=== PATIENT | female | born 1945 | race Caucasian/White ===

== ENCOUNTER 2017-03-26 08:00 | Outpatient (CLI) | payer MEDICARE | END 2017-03-26 23:59 | LOC: LAB.F 08:00 | PROVIDERS: ATTEND Physician Assistant Medical | DX: Z79.890 Hormone replacement therapy (principal) | CPT/HCPCS: 36415; 82670 ==

== ENCOUNTER 2017-05-07 10:24 | Outpatient (CLI) | payer MEDICARE ==
[2017-05-07 17:46] LABS: BASOPHILS % (AUTO) 0.5 %; EOSINOPHILS # (AUTO) 0.1 10^3/uL (0.0-0.7); EOSINOPHILS % (AUTO) 0.9 %; HGB - HEMOGLOBIN 14.6 g/dL (12.0-16.0); LYMPHOCYTES # (AUTO) 1.6 10^3/uL (1.5-3.5); LYMPHOCYTES % (AUTO) 26.5 %; MEAN CORPUSCULAR HEMOGLOBIN 32.4 pg (27.0-31.0); MEAN CORPUSCULAR HGB CONC 33.6 g/dL (32.0-36.0); MEAN CORPUSCULAR VOLUME 96.4 fL (81.0-99.0); MEAN PLATELET VOLUME 9.6 fL (7.9-10.8); MONOCYTES # (AUTO) 0.4 10^3/uL (0.0-1.0); MONOCYTES % (AUTO) 7.5 %; NEUTROPHILS # (AUTO) 3.8 10^3/uL (1.5-6.6); NEUTROPHILS % (AUTO) 64.6 %; PLT - PLATELET COUNT 250 10^3/uL (130-450); RED CELL DISTRIBUTION WIDTH 13.1 % (12.0-15.0); WHITE BLOOD COUNT 5.9 x10^3/uL (4.8-10.8)
[2017-05-07 18:38] LABS: ALBUMIN/GLOBULIN RATIO 1.2 (1.0-2.2); BILIRUBIN,TOTAL 0.7 mg/dL (0.2-1.0); CALCIUM 9.2 mg/dL (8.5-10.3); CREATININE 0.8 mg/dL (0.4-1.0); TOTAL PROTEIN 7.4 g/dL (6.7-8.2)
== END 2017-05-07 10:25 | disposition home or self-care (01) ==
LOC: LAB.F 10:24
PROVIDERS: ATTEND Physician Assistant Medical
DX: Z51.81 Encounter for therapeutic drug level monitoring (principal)
CPT/HCPCS: 36415; 80053; 85025

== ENCOUNTER 2018-04-17 09:48 | Outpatient (CLI) | payer MEDICARE ==
[2018-04-17 18:04] LABS: HB2 TOTAL 15.2 g/dL; HEMOGLOBIN A1C 0.59 g/dL; HEMOGLOBIN A1C % 5.7 % (4.6-6.2)
[2018-04-17 18:48] LABS: CHOL/HDL RATIO 3.3 (<4.4); CHOLESTEROL 236 mg/dL; HDL CHOLESTEROL 71 mg/dL; LDL CHOLESTEROL,CALCULATED 133 mg/dL; LDL/HDL RATIO 1.9 (<4.4); VLDL CHOLESTEROL 32 mg/dL
== END 2018-04-17 09:49 | disposition home or self-care (01) ==
LOC: LAB.F 09:48
PROVIDERS: ATTEND Registered Nurse
DX: I10 Essential (primary) hypertension (principal); Z79.890 Hormone replacement therapy; F32.9 Major depressive disorder, single episode, unspecified; Z79.899 Other long term (current) drug therapy
CPT/HCPCS: 36415; 80061; 83036; 83721; 84443

== ENCOUNTER 2018-04-17 12:37 | Outpatient (CLI) | payer MEDICARE ==
--- NOTE | 2018-04-20 11:51 | DEXA Report ---
Reason: HRT,OSTEOARTHRITIS,CARPOMET,JOINT,RIGHT THUMB Procedure Date: 04/17/2018 Accession Number: [id number] / [id number] Procedure: DEX - Dexa Spine and/or Hip CPT Code: FULL RESULT: EXAM: Dexa Spine and/or Hip DATE: 04/17/2018 1:07 PM CLINICAL HISTORY: HRT,OSTEOARTHRITIS,CARPOMET,JOINT,RIGHT THUMB hormone replacement therapy. Ovarian failure. TECHNIQUE: Dual energy x-ray absorptiometry (DXA) was performed on a [employer] System. Regions measured are the AP Spine, femoral neck, and if needed forearm. COMPARISON: 02/18/2014 In accordance with the International Society for Clinical Densitometry (ISCD) guidelines, data from previous exams may be reanalyzed using current recommendations and techniques. This is done to allow a more accurate basis for comparison with the current study. FINDINGS: The data for the lumbar spine is as follows: BMD (g/cm/cm) T-SCORE Z-SCORE REGION L1 1.321 1.6 2.7 L2 1.495 2.5 3.6 L3 1.556 3.0 4.1 L4 1.429 1.9 3.0 TOTAL 1.450 2.2 3.4 NOTE: All evaluable vertebrae are used for classification The data for the hip is as follows: BMD (g/cm/cm) T-SCORE Z-SCORE REGION Neck 0.955 -0.6 0.8 TOTAL 1.023 0.1 1.3 NOTE: The femoral neck or total proximal femur, whichever is lowest, is used for classification. IMPRESSION: THE WHO CLASSIFICATION BASED ON THE INTERNATIONAL REFERENCE STANDARD IS NORMAL. THE FRACTURE RISK IS NOT INCREASED. RECOMMENDATION: Patients with diagnosis of osteoporosis or osteopenia should have regular bone mineral density assessment. For those eligible for Medicare, routine testing is allowed once every 2 years. Testing frequency can be increased for patients who have rapidly progressing disease or for those who are receiving medical therapy to restore bone mass. COMMENT: World Health Organization (WHO) definitions for osteoporosis and osteopenia: NORMAL BMD: T-score at -1.0 or higher, fracture risk is low OSTEOPENIA BMD: T-score between -1.0 and -2.5, fracture risk is increased. OSTEOPOROSIS BMD: T-score at -2.5 or lower, fracture risk is high. National Osteoporosis Foundation recommends: 1. Obtain adequate dietary calcium (at least 1200 mg per day) and vitamin D (400-800 international units per day). 2. Participate, as appropriate, in regular weightbearing and muscle-strengthening exercise. 3. Avoid tobacco use and reduce alcohol and caffeine intake. 4. For more detailed information see the website at www.NOF.org.
== END 2018-04-17 12:38 | disposition home or self-care (01) ==
LOC: DI 12:37
PROVIDERS: ATTEND Registered Nurse
DX: M18.11 Unilateral primary osteoarthritis of first carpometacarpal joint, right hand (principal); Z79.890 Hormone replacement therapy; I10 Essential (primary) hypertension; F32.9 Major depressive disorder, single episode, unspecified; Z79.899 Other long term (current) drug therapy
CPT/HCPCS: 36415; 77080; 80061; 83036; 83721; 84443

== ENCOUNTER 2019-06-04 09:09 | Outpatient (CLI) | payer MEDICARE ==
[2019-06-04 17:26] LABS: BASOPHILS % (AUTO) 0.5 %; EOSINOPHILS # (AUTO) 0.1 10^3/uL (0.0-0.7); EOSINOPHILS % (AUTO) 1.2 %; HGB - HEMOGLOBIN 14.1 g/dL (12.0-16.0); LYMPHOCYTES # (AUTO) 1.2 10^3/uL (1.5-3.5); LYMPHOCYTES % (AUTO) 20.5 %; MEAN CORPUSCULAR HEMOGLOBIN 30.9 pg (27.0-31.0); MEAN CORPUSCULAR HGB CONC 33.2 g/dL (32.0-36.0); MEAN PLATELET VOLUME 11.1 fL (7.9-10.8); MONOCYTES # (AUTO) 0.5 10^3/uL (0.0-1.0); MONOCYTES % (AUTO) 8.3 %; NEUTROPHILS % (AUTO) 69.3 %; PLT - PLATELET COUNT 258 10^3/uL (130-450); RED BLOOD COUNT 4.57 10^6/uL (4.20-5.40); RED CELL DISTRIBUTION WIDTH 12.1 % (12.0-15.0); WHITE BLOOD COUNT 5.8 x10^3/uL (4.8-10.8)
[2019-06-04 17:47] LABS: ALBUMIN 4.1 g/dL (3.2-5.5); ALBUMIN/GLOBULIN RATIO 1.3 (1.0-2.2); ALKALINE PHOSPHATASE 53 IU/L (42-121); ALT ALANINE AMINOTRANSFERASE 18 IU/L (10-60); AST ASPARTATE AMINOTRANSFERASE 21 IU/L (10-42); BILIRUBIN,TOTAL 0.8 mg/dL (0.2-1.0); BUN - BLOOD UREA NITROGEN 18 mg/dL (6-20); CALCIUM 9.1 mg/dL (8.5-10.3); CARBON DIOXIDE - CO2 26 mmol/L (21-32); CHLORIDE 101 mmol/L (101-111); CHOL/HDL RATIO 3.5 (<4.4); CHOLESTEROL 252 mg/dL; CREATININE 0.7 mg/dL (0.4-1.0); GFR - MDRD 82 (>89); GLUCOSE 112 mg/dL (70-100); HDL CHOLESTEROL 73 mg/dL; LDL CHOLESTEROL,CALCULATED 142 mg/dL; LDL/HDL RATIO 1.9 (<4.4); SODIUM 137 mmol/L (135-145); TOTAL PROTEIN 7.2 g/dL (6.7-8.2); VLDL CHOLESTEROL 37 mg/dL
== END 2019-06-04 09:10 | disposition home or self-care (01) ==
LOC: LAB.S 09:09
PROVIDERS: ATTEND Registered Nurse
DX: R00.2 Palpitations (principal); I10 Essential (primary) hypertension; F32.9 Major depressive disorder, single episode, unspecified; Z79.890 Hormone replacement therapy
CPT/HCPCS: 36415; 80053; 80061; 83721; 84443; 85025

== ENCOUNTER 2019-09-23 06:25 | Day surgery (SDC) | payer MEDICARE ==
[~2019-09-23 06:25] MED LIST: CYCLOPENTOLATE 1% OPHTH DROPS 2 ML ONE; KETOROLAC 0.45% OPHTH DROPS ONE; PHENYLEPHRINE 2.5% OPHTH 2 ML DROPS ONE; PROPARACAINE 0.5% OPHTH DROPS 15 ML ONE
[2019-09-23] MEDS ORDERED: PROPARACAINE 0.5% OPHTH DROPS 15 ML LEFTEYE ONE (06:40)
[2019-09-23] MEDS ORDERED: KETOROLAC 0.45% OPHTH DROPS LEFTEYE ONE (06:40)
[2019-09-23] MEDS ORDERED: PHENYLEPHRINE 2.5% OPHTH 2 ML DROPS LEFTEYE ONE (06:40)
[2019-09-23] MEDS ORDERED: CYCLOPENTOLATE 1% OPHTH DROPS 2 ML LEFTEYE ONE (06:40)
[2019-09-23] MEDS ORDERED: LACTATED RINGERS 500 ML IV ONE (06:45)
[2019-09-23] MEDS ORDERED: timoloL maleate 0.5% OPHTH DROPS (10ML) ONE (06:58)
[2019-09-23] MEDS ORDERED: BRIMONIDINE 0.2% OPHTH DROPS 5 ML ONE (06:58)
[2019-09-23] MEDS ORDERED: EPINEPHrine 1 MG/ML AMP ONE (06:58)
[2019-09-23] MEDS ORDERED: TRIAMCIN/MOXIFLOX OPHTHALMIC 0.6 ML VIAL IO ONE ×2 (06:58→08:49)
[2019-09-23] MEDS ORDERED: BSS/LIDOCAINE/EPINEPHRINE 1 ML SYRINGE ONE (06:59)
[2019-09-23] MEDS ORDERED: VANCOMYCIN OPHTHALMI 8MG/0.8ML 8 MG/0.8 ML SYRINGE IO ONE ×2 (06:59→08:50)
--- NOTE | 2019-09-23 07:01 | ANESTHESIA ---
Pre-Anesthesia VS, & Labs - Diagnosis nuclear sclerotic cataract left eye - Procedure left cataract extraction with intraocular lens implant Vital Signs: Temp Pulse Resp BP Pulse Ox 36.1 C L 75 18 160/78 H 98 09/23/19 06:30 09/23/19 06:30 09/23/19 06:30 09/23/19 06:30 09/23/19 06:30 Height 5 ft 3 in Weight (kg) 87.2 kg - NPO >8 hours - Is Patient ?: No Home Medications and Allergies Home Medications: Ambulatory Orders Cetirizine [ZyrTEC] 1 DAILY 09/23/19 Cholecalciferol [Vitamin D3] 1 DAILY 09/23/19 Duloxetine HCl 1 DAILY 09/23/19 Vit C/Ascorb Sod/Multivit-Min [Emergen-C 500 mg Chewable Tab] 1 DAILY 09/23/19 atenoloL [Atenolol] 1 DAILY 09/23/19 Cetirizine [ZyrTEC] 1 DAILY 09/23/19 Cholecalciferol [Vitamin D3] 1 DAILY 09/23/19 Duloxetine HCl 1 DAILY 09/23/19 Vit C/Ascorb Sod/Multivit-Min [Emergen-C 500 mg Chewable Tab] 1 DAILY 09/23/19 atenoloL [Atenolol] 1 DAILY 09/23/19 Allergies/Adverse Reactions: Allergies Allergy/AdvReac Type Severity Reaction Status Date / Time cephalexin [From Keflex] Allergy Rash Verified 09/23/19 06:49 Sulfa (Sulfonamide Allergy Respiratory Verified 09/23/19 06:49 Antibiotics) Anes History & Medical History - Anesthetic History Anesthesia Complications: reports: No previous complications - Medical History Cardiovascular: reports: Hypertension Pulmonary: reports: Other Gastrointestinal: reports: GERD Urinary: reports: Other Musculoskeletal: reports: None Endocrine/Autoimmune: reports: None Skin: reports: None - Surgical History General: Colonoscopy Eyes Ears Nose Throat (EENT): Cataracts, Other Gynecologic: 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, Hysterectomy Exam General: Alert, Oriented x3 Dental: WNL Mouth Opening: Greater than 4 Fingerbreadths Neck Mobility: Normal Mallampati classification: II Thyromental Distance: greater than 6 cm Respiratory: Lungs clear Cardiovascular: Regular rate Plan Anesthesia Type: MAC Consent for Procedure(s) Verified and Reviewed: Yes Code Status: Attempt Resuscitation ASA classification: 2-Mild systemic disease Is this case an emergency?: No
[2019-09-23] MEDS ORDERED: MIDAZOLAM 2 MG/2 ML VIAL IVP ONE (07:23)
[2019-09-23 07:54] VITALS: BP 146/64
[2019-09-23] MEDS ORDERED: BRIMONIDINE 0.2% OPHTH DROPS 5 ML OPTH ONE (08:48)
[2019-09-23] MEDS ORDERED: EPINEPHrine 1 MG/ML AMP IVP ONE (08:48)
[2019-09-23] MEDS ORDERED: BSS/LIDOCAINE/EPINEPHRINE 1 ML SYRINGE IO ONE (08:48)
[2019-09-23] MEDS ORDERED: CHONDR SULF/HYALURONATE SYRINGE IO ONE (08:48)
[2019-09-23] MEDS ORDERED: timoloL maleate 0.5% OPHTH DROPS (10ML) LEFTEYE ONE (08:49)
--- NOTE | 2019-09-23 09:18 | PROCEDURE REPORT ---
DATE OF SERVICE: 09/23/2019 Physician: Deepak Foote MD PREOPERATIVE DIAGNOSIS: Visually significant cataract, left eye. Cataract surgery was performed on the right eye on 02/13/2012. POSTOPERATIVE DIAGNOSIS: Visually significant cataract, left eye. Cataract surgery was performed on the right eye on 02/13/2012. PROCEDURE: Phacoemulsification with posterior chamber intraocular lens implant, left eye. SURGEON: Deepak Foote MD ANESTHESIA: Monitored anesthesia care. COMPLICATIONS: None. OPERATIVE INDICATIONS: This is a 74-year-old woman with progressive vision loss in the left eye due to 2+ nuclear sclerotic, 1+ cortical and vacuolar5 cataract. Best corrected visual acuity was 20/25 with glare to 20/125 in the left eye. Indications for surgery were difficulty driving in low light or at night, difficulty with glare or bright lights in any situation. She was consented at length concerning risks and benefits of cataract surgery, after which she expressed a desire to proceed with surgery. OPERATIVE PROCEDURE: The patient was taken to OR #3 and placed under monitored anesthesia care and surgical timeout was conducted confirming correct patient, correct procedure, and correct surgical site. She was given topical anesthesia, and prepped and draped in the usual sterile fashion. The eye was entered at the 6 and 3 o'clock positions. Intracameral Shugarcaine was injected into the anterior chamber, followed by Viscoat. A continuous-tear curvilinear capsulorrhexis was performed. The nucleus was hydrodissected and phacoemulsified. Cortex was evacuated using automated infusion and aspiration. Provisc was injected in the capsular bag, and an 18.5 diopter intraocular lens inserted in the bag. Infusion and aspiration was used to evacuate the viscoelastic materials. The eye was inflated to physiologic pressure using balanced salt solution and found to be watertight. Approximately 0.25 mL of a mixture of triamcinolone and moxifloxacin was injected trans sclerally into the vitreous in the inferotemporal quadrant. An additional 0.55 mL of a mixture of triamcinolone, moxifloxacin and vancomycin was injected subconjunctivally in the superior quadrant for infection and inflammation prophylaxis. Wound integrity was checked with Weck-Makenzie sponges. The patient was taken from the operating room in good condition and given postoperative instructions. TD: 09/23/2019 07:54 [facility]
== END 2019-09-23 06:26 | disposition home or self-care (01) ==
LOC: SDS 06:25
PROVIDERS: ATTEND Ophthalmology
PROC: 08RK3JZ Replacement of Left Lens with Synthetic Substitute, Percutaneous Approach (ICD-10-PCS; principal; 2019-09-23 07:30)
DX: H25.12 Age-related nuclear cataract, left eye (principal); I10 Essential (primary) hypertension; F41.9 Anxiety disorder, unspecified; Z87.891 Personal history of nicotine dependence
CPT/HCPCS: 66984; A9270; J3490; V2632

== ENCOUNTER 2019-12-15 12:23 | Outpatient (CLI) | payer MEDICARE ==
--- NOTE | 2019-12-16 06:36 | Mammography Report ---
BILATERAL DIGITAL SCREENING MAMMOGRAM 3D/2D: 12/15/2019 CLINICAL: Routine screening. Comparison is made to exams dated: 02/27/2016 mammogram, 06/14/2014 mammogram, 05/30/2014 mammogram, 04/07/2012 mammogram, 12/26/2011 mammogram, and 10/26/2010 mammogram - [facility]. The tissue of both breasts is predominantly fatty. There is a 0.6 cm irregular asymmetry with an indistinct margin in the right breast anterior depth ce ntral to the nipple seen on the craniocaudal view only 4 cm from the nipple. No other significant masses, calcifications, or other findings are seen in either breast. IMPRESSION: INCOMPLETE: NEEDS ADDITIONAL IMAGING EVALUATION The 0.6 cm irregular asymmetry in the right breast is indeterminate. A diagnostic mammogram and ultr asound is recommended. This exam was interpreted at Station ID: [id number]. NOTE: For mammograms, a report in lay terms will be sent to the patient. Approximately 15% of breast malignancies will not be visualized mammographically. In the management of a palpable breast mass, a negative mammogram must not discourage biopsy of a clinically suspicious lesion. Electronically Signed By: Dexter Mendoza M.D., jr/capo:12/15/2019 13:34:08 ACR BI-RADS Category 0: Incomplete 3340F PARENCHYMAL PATTERN: (F) - The breast(s) demonstrate(s) diffuse fatty replacement. BI-RADS CATEGORY: (0) - 0 Mammo and [place] [id number] Immediate follow-up LATERALITY: (B)
== END 2019-12-15 12:24 | disposition home or self-care (01) ==
LOC: DI 12:23
PROVIDERS: ATTEND Registered Nurse
DX: Z12.31 Encounter for screening mammogram for malignant neoplasm of breast (principal); R92.8 Other abnormal and inconclusive findings on diagnostic imaging of breast
CPT/HCPCS: 77063; 77067

== ENCOUNTER 2020-01-14 11:50 | Outpatient (CLI) | payer MEDICARE | END 2020-01-14 23:59 | disposition home or self-care (01) | LOC: COV 11:50 | PROVIDERS: ATTEND Family Medicine | DX: R05 Cough (principal); Z20.828 Contact with and (suspected) exposure to other viral communicable diseases; M79.10 Myalgia, unspecified site; R53.83 Other fatigue ==

== ENCOUNTER 2020-03-15 12:57 | Outpatient (CLI) | payer MEDICARE | END 2020-03-15 23:59 | disposition home or self-care (01) | LOC: LAB.R 12:57 | PROVIDERS: ATTEND Physician Assistant | DX: R30.0 Dysuria (principal); N30.00 Acute cystitis without hematuria | CPT/HCPCS: 87086 ==

== ENCOUNTER 2020-03-27 09:13 | Outpatient (CLI) | payer MEDICARE ==
--- NOTE | 2020-03-27 14:45 | Mammography Report ---
UNILATERAL RIGHT DIGITAL DIAGNOSTIC MAMMOGRAM 3D/2D: 03/27/2020 CLINICAL: Patient returns today to evaluate a focal asymmetry in the right breast. Comparison is made to exams dated: 12/15/2019 mammogram, 02/27/2016 mammogram, 06/14/2014 mammogram, an d 05/30/2014 mammogram - [facility]. The tissue of right breast is predominantly fa tty. There also is a new 0.6 cm irregular asymmetry with an indistinct margin in the right breast anterior depth central to the nipple seen on the craniocaudal view only 4 cm from the nipple. This is seen i n additional views. This was not seen on the prior scrreening mammogram. No other significant masses or calcifications are seen in the breast. IMPRESSION: INCOMPLETE: NEEDS ADDITIONAL IMAGING EVALUATION The new 0.6 cm irregular asymmetry in the right breast anterior depth central to the nipple seen on t he craniocaudal view only is indeterminate. An ultrasound is recommended. US will be performed and dictated separately. This exam was interpreted at Station ID: [id number]. NOTE: For mammograms, a report in lay terms will be sent to the patient. Approximately 15% of breast malignancies will not be visualized mammographically. In the management of a palpable breast mass, a negative mammogram must not discourage biopsy of a clinically suspicious lesion. Electronically Signed By: Franki Robles acr/:03/27/2020 11:03:09 ACR BI-RADS Category 0: Incomplete 3340F PARENCHYMAL PATTERN: (F) - The breast(s) demonstrate(s) diffuse fatty replacement. BI-RADS CATEGORY: (0) - 0 Ultrasound [id number] Immediate follow-up LATERALITY: (B)
--- NOTE | 2020-03-27 14:46 | Ultrasound Report ---
LIMITED ULTRASOUND OF RIGHT BREAST: 03/27/2020 CLINICAL: Patient returns today to evaluate a focal asymmetry in the right breast. No abnormality which corresponds with the mammographic abnormality is seen. IMPRESSION: PROBABLY BENIGN There are no abnormalities seen in the right breast to correspond with the mammography findings at 7, 8, 9, and 10 o'clock which likely represent normal fibroglandular tissue. A follow-up mammogram and an ultrasound in 6 months is recommended to demonstrate stability. This exam was interpreted at Station ID: [id number]. Electronically Signed By: Franki Robles acr/:03/27/2020 11:12:00 Ultrasound BI-RADS: 3 Probably benign BI-RADS CATEGORY: (3) - 3 Mammo and [place] [id number] 6 month follow-up LATERALITY: (B)
== END 2020-03-27 09:14 | disposition home or self-care (01) ==
LOC: DI 09:13
PROVIDERS: ATTEND Registered Nurse
DX: N64.59 Other signs and symptoms in breast (principal)

== ENCOUNTER 2020-04-14 14:20 | Emergency (ER) | payer MEDICARE ==
--- NOTE | 2020-04-14 14:40 | ED Physician Documentation ---
PD HPI HEADACHE - Stated complaint Stated Complaint: NAUSEA, HEADACHE - Chief complaint Chief Complaint: Neuro - History obtained from History obtained from: Patient - History of Present Illness Timing - onset: How many days ago (2) Timing - onset during: Sleep Timing - duration: Days (2) Timing - details: Abrupt onset Pain level max: 8 Pain level now: 6 Location: Front, Left Quality: Throbbing, Aching, Tightness. No: Thunderclap, Like head is exploding Associated symptoms: Other (states feels dizzy and off balance). No: Fever, Stiff neck, Nausea, Vomiting, Weakness, Numbness, Syncope, Seizure, Eye pain, Vision changes Improved by: Rest Worsened by: Light, Noise, Moving Contributing factors: No: Anticoagulated, Possible carbon monoxide, Hypertension, Recent illness, Trauma Recently seen: Not recently seen - Additional information Additional information: took aspirin at home without relief. Seen at the walk in clinic today and sent here for further evaluation. Patient also states that she feels dizzy when she walks, like the room is spinning and she is off balance. Worse with turning her head. Better with lying still Review of Systems Ten Systems: 10 systems reviewed and negative Constitutional: denies: Fever, Chills Eyes: denies: Decreased vision, Photophobia Nose: denies: Rhinorrhea / runny nose, Congestion Throat: denies: Sore throat Respiratory: denies: Cough GI: denies: Abdominal Pain, Nausea, Vomiting, Diarrhea Skin: denies: Rash Musculoskeletal: denies: Neck pain, Back pain Neurologic: denies: Focal weakness, Numbness, Syncope, Seizure, Confused PD PAST MEDICAL HISTORY - Past Medical History Cardiovascular: Hypertension Respiratory: Other Endocrine/Autoimmune: None GI: GERD : Other HEENT: Chronic vision loss, Chronic sinusitis, Chronic hearing loss Psych: Depression, Anxiety, Claustrophobia Musculoskeletal: None Derm: None - Past Surgical History General: 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: 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, Hysterectomy HEENT: Cataracts, Other - Present Medications Home Medications: Ambulatory Orders Medication Instructions Recorded Confirmed Cholecalciferol [Vitamin D3] 5,000 unit PO DAILY 09/23/19 04/14/20 Duloxetine HCl 20 mg PO DAILY 09/23/19 04/14/20 Vit C/Ascorb Sod/Multivit-Min 500 mg PO DAILY 09/23/19 04/14/20 [Emergen-C 500 mg Chewable Tab] atenoloL [Atenolol] 50 mg PO DAILY 09/23/19 04/14/20 Amox/Clav 875/125 [Augmentin] 1 tab PO Q12H #20 tablet 04/14/20 Omeprazole 20 mg PO DAILY 04/14/20 04/14/20 - Allergies Allergies/Adverse Reactions: Allergies Allergy/AdvReac Type Severity Reaction Status Date / Time cephalexin [From Keflex] Allergy Rash Verified 04/14/20 15:08 nitrofurantoin Allergy Unknown Verified 04/14/20 15:08 Sulfa (Sulfonamide Allergy Respiratory Verified 04/14/20 15:08 Antibiotics) PD ED PE NORMAL - Vitals Vital signs reviewed: Yes - General General: Alert and oriented X 3, No acute distress - HEENT HEENT: Atraumatic, PERRL, EOMI, Moist mucous membranes, Pharynx benign, Other (R TM is erythematous, dull, bulging with loss of landmarks. Purulent fluid present., L TM is normal. no sinus tenderness.) - Neck Neck: Supple, no meningeal sign - Cardiac Cardiac: RRR - Respiratory Respiratory: No respiratory distress, Clear bilaterally - Abdomen Abdomen: Soft, Non tender, Non distended - Derm Derm: Warm and dry - Extremities Extremities: No edema, No calf tenderness / cord - Neuro Neuro: Alert and oriented X 3, computer scientist 2-12 intact, No motor deficit, No sensory deficit, Normal speech, Other (normal cerebellar testing. + hallpike to the R. Horizontal nystagmus to the R. ) Eye Opening: Spontaneous Motor: Obeys Commands Verbal: Oriented GCS Score: 15 - Psych Psych: Normal mood, Normal affect Results - Vitals Vitals: Vital Signs - 24 hr 04/14/20 04/14/20 04/14/20 14:21 14:40 15:06 Temperature 36.4 C L Heart Rate 64 61 60 Respiratory 15 10 L 10 L Rate Blood Pressure 197/91 H 170/84 H 175/85 H O2 Saturation 99 99 100 04/14/20 04/14/20 04/14/20 15:30 16:47 17:00 Temperature Heart Rate 67 60 64 Respiratory 13 18 18 Rate Blood Pressure 189/99 H 174/79 H 170/73 H O2 Saturation 99 100 99 Oxygen O2 Source Room air - Labs Labs: Laboratory Tests 04/14/20 04/14/20 14:43 14:43 WBC 7.4 RBC 4.60 Hgb 14.3 Hct 42.9 MCV 93.3 MCH 31.1 H MCHC 33.3 RDW 12.3 Plt Count 257 MPV 9.6 Neut # (Auto) 5.8 Lymph # (Auto) 1.2 L [place] # (Auto) 0.4 Eos # (Auto) 0.0 Baso # (Auto) 0.0 Absolute Nucleated RBC 0.00 Nucleated RBC % 0.0 Sodium 134 L Potassium 4.0 Chloride 100 L Carbon Dioxide 24 Anion Gap 10.0 BUN 14 Creatinine 0.8 Estimated GFR (MDRD) 70 L Glucose 119 H Calcium 8.9 Total Bilirubin 0.7 AST 27 ALT 30 Alkaline Phosphatase 67 Total Protein 7.5 Albumin 4.2 Globulin 3.3 Albumin/Globulin Ratio 1.3 Lipase 19 L - Rads (name of study) head ct Radiology: Prelim report reviewed, EMP read contemporaneously, See rad report (No acute abnormality) MRI brain Radiology: Prelim report reviewed, EMP read contemporaneously, See rad report (No acute abnormality) MRV brain Radiology: Prelim report reviewed, EMP read contemporaneously, See rad report (No acute abnormality) PD MEDICAL DECISION MAKING - ED course Complexity details: reviewed results, re-evaluated patient, considered differential, d/w patient ED course: 74-year-old female with a headache for the past 2 days. Does have a left otitis media. We will place her on antibiotics for this. No acute findings on head CT. No evidence of sinus venous thrombosis. No evidence of stroke. Headache improved in the emergency department. No fevers. Ambulating without difficulty in the emergency department. NIH stroke scale of 0. We will place her on antibiotics for home and have her follow-up with her doctor. Patient counseled regarding signs and symptoms for which I believe and urgent re-evaluation would be necessary. Patient with good understanding of and agreement to plan and is comfortable going home at this time This document was made in part using voice recognition software. While efforts are made to proofread this document, sound alike and grammatical errors may occur. Departure - Departure Disposition: 01 Home, Self Care Clinical Impression: Headache Qualifiers: Headache type: unspecified Headache chronicity pattern: unspecified pattern Intractability: not intractable Qualified Code(s): R51.9 - Headache, unspecified Otitis media Qualifiers: Otitis media type: suppurative Chronicity: acute Laterality: left Recurrence: non-recurrent Spontaneous tympanic membrane rupture: without spontaneous rupture Qualified Code(s): H66.002 - Acute suppurative otitis media without spontaneous rupture of ear drum, left ear Condition: Good Instructions: ED Cephalgia Unspecified, ED Otitis Media Acute Adult Follow-Up: Christi Pineda ARNP [Primary Care Provider] - Within 1 week Prescriptions: Amox/Clav 875/125 [Augmentin] 1 tab PO Q12H #20 tablet Comments: Return if you worsen. Your workup is normal tonight. Take all antibiotics until gone. Follow up with your doctor for further care. Your [facility] was [facility] to [facility] Discharge Date/Time: 04/14/20 17:36
[2020-04-14 14:49] LABS: BASOPHILS % (AUTO) 0.4 %; EOSINOPHILS % (AUTO) 0.3 %; HGB - HEMOGLOBIN 14.3 g/dL (12.0-16.0); LYMPHOCYTES # (AUTO) 1.2 10^3/uL (1.5-3.5); LYMPHOCYTES % (AUTO) 15.9 %; MEAN CORPUSCULAR HEMOGLOBIN 31.1 pg (27.0-31.0); MEAN CORPUSCULAR HGB CONC 33.3 g/dL (32.0-36.0); MEAN CORPUSCULAR VOLUME 93.3 fL (81.0-99.0); MEAN PLATELET VOLUME 9.6 fL (7.9-10.8); MONOCYTES # (AUTO) 0.4 10^3/uL (0.0-1.0); MONOCYTES % (AUTO) 4.8 %; NEUTROPHILS # (AUTO) 5.8 10^3/uL (1.5-6.6); NEUTROPHILS % (AUTO) 78.3 %; PLT - PLATELET COUNT 257 10^3/uL (130-450); RED CELL DISTRIBUTION WIDTH 12.3 % (12.0-15.0); WHITE BLOOD COUNT 7.4 x10^3/uL (4.8-10.8)
[2020-04-14 15:03] LABS: ALBUMIN 4.2 g/dL (3.2-5.5); ALBUMIN/GLOBULIN RATIO 1.3 (1.0-2.2); BILIRUBIN,TOTAL 0.7 mg/dL (0.2-1.0); CALCIUM 8.9 mg/dL (8.5-10.3); CREATININE 0.8 mg/dL (0.4-1.0); TOTAL PROTEIN 7.5 g/dL (6.7-8.2)
--- NOTE | 2020-04-14 15:16 | CT Report ---
PROCEDURE: HEAD WO INDICATIONS: headache TECHNIQUE: Noncontrast 4.5 mm thick angled axial sections acquired from the foramen magnum to the vertex. For r adiation dose reduction, the following was used: automated exposure control, adjustment of mA and/or kV according to patient size. COMPARISON: None. FINDINGS: Image quality: Excellent. CSF spaces: Basal cisterns are patent. No extra-axial fluid collections. The ventricles are symmet idalia in size and shape. Brain: No intracranial bleeds or masses. There is cerebral volume loss for age, with resultant vent ricular and sulcal prominence. There are periventricular and deep white matter chronic small vessel ischemic changes. There is intracranial internal carotid artery atherosclerosis. Skull and face: Calvarium and visualized facial bones appear intact, without suspicious lesions. Sinuses: Visualized sinuses and mastoids are clear. IMPRESSION: 1. No CT evidence of acute intracranial pathology. 2. Age-appropriate atrophy and mild white matter small vessel chronic ischemic changes. Reviewed by: Joon Blas MD on 04/14/2020 3:15 PM PST Approved by: Joon Blas MD on 04/14/2020 3:15 PM PST Station ID: [id number]
[2020-04-14] MEDS ORDERED: LORazepam 2 MG/ML VIAL IVP STA (15:45)
--- NOTE | 2020-04-14 16:50 | MRI Report ---
PROCEDURE: MRV-Brain Venous W/O INDICATIONS: headache, gait difficulties TECHNIQUE: Sagittal T1 spin echo through the brain. Coronal 2D [id number] MR venogram, with 3-dimensional m xozsfo-jlrtnnfaj-ttaipgrvxw (MIP) reformats of the intracranial veins then performed. COMPARISON: Correlation is made with the accompanying head CT and brain MRI, 04/14/2020. FINDINGS: Image quality: Excellent. Veins: Sagittal, straight, and sigmoid sinuses all appear patent. The left transverse sinus is dimi nutive. 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 Brain: Limited images through the brain parenchyma show no intracranial bleeds or mass effects. IMPRESSION: No intracranial venous thrombosis can be seen. Reviewed by: Dameon Mercado MD on 04/14/2020 3:49 PM [facility] Approved by: Dameon Mercado MD on 04/14/2020 3:49 PM [facility] Station ID: [id number]
--- NOTE | 2020-04-14 16:51 | MRI Report ---
PROCEDURE: Brain W/O INDICATIONS: headache, gait difficulties TECHNIQUE: Noncontrast axial T1 spin echo, axial T2 fast spin echo, sagittal and axial FLAIR, coronal T2 fast sp in echo, axial gradient echo, axial diffusion and ADC through the brain. COMPARISON: Correlation is made with the CT performed earlier in the day as well as the accompanying MR venogram. FINDINGS: Image quality: Excellent. CSF Spaces: Basal cisterns are patent. No extra-axial fluid collections. Ventricles are normal in size and shape. Brain: No intracranial masses or hemorrhage. Cortés/white matter interface is normal. Brainstem appe ars normal. Diffusion-weighted images demonstrate no acute ischemic insult. Brain parenchymal volume loss is seen. Chronic small vessel ischemic changes are seen. No chronic ischemic insults. Normal i ntravascular flow voids are present. Skull and face: Calvarium has normal marrow signal. Orbits appear normal. Sinuses: Sinuses and mastoids are clear. IMPRESSION: No imaging explanation is found for the patient's presenting symptoms. Unremarkable intracranial study for age, with age-appropriate brain parenchymal volume loss and chron ic small vessel ischemic change. No findings of acute or subacute infarction are seen. Reviewed by: Dameon Mercado MD on 04/14/2020 3:50 PM [place] Approved by: Dameon Mercado MD on 04/14/2020 3:[address] [facility] Station ID: [id number]
[2020-04-14] MEDS ORDERED: AMOX/CLAV 875 MG/125 MG TABLET PO STA (16:53)
[2020-04-14] MEDS ORDERED: BUTALB/ACETAM/CAFF 50/325/40MG TABLET PO STA (16:53)
[2020-04-14 17:45] VITALS: BP 170/73
--- OUTSIDE RECORDS SUMMARY | 2020-04-19 01:43 | EXTERNAL MEDICAL SUMMARY RPT | Continuity of Care Document ---
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 Katus Unavailable Unavailable Problems date description facility 2020-02-08 00:00:00 Former smoker [facility] 2020-03-15 00:00 ACUTE CYSTITIS WITHOUT [facility] HEMATURIA 2020-03-15 00:[facility] [place] [facility] 2020-03-15 00:00:00 Acute cystitis without [facility] hematuria [facility] 2020-03-15 00:00:00 [facility] 2020-03-15 00[facility]00[facility]00 [facility] 2020-03-15 00:00:00 [facility] 2020-03-15 00:00:00 [facility] 2020-03-15 00:00:00 Details of drug misuse [facility] 2020-03-15 00:00:00 [facility] 2020-03-15 00:00:00 Tobacco smoking status [facility] 2020-03-15 00:00:00 [facility] 2020-03-15 12:57 ACUTE CYSTITIS WITHOUT [facility] HEMATURIA 2020-03-15 12:57 DYSURIA [facility] 2020-03-23 00:00:00 Vaginitis and vulvovaginitis, [facility] unspecified [facility] 2020-03-23 00:00:00 Subacute and chronic vaginitis [facility] 2020-03-23 00:00:00 Vulvovaginitis [facility] 2020-03-23 00:00:00 Former smoker [facility] 2020-04-14 00:00:00 Nausea alone [facility] 2020-04-14 00:00:00 Nausea [facility] 2020-04-14 00:00:00 Dizziness and giddiness [facility] 2020-04-14 00:00:00 Alcohol intake [facility] 2020-04-14 00:00:00 Health-related behavior [facility] 2020-04-14 00:00:00 Tobacco use and exposure [facility] 2020-04-14 00:00:00 Exercise [facility] 2020-04-14 00:00:00 Details of drug misuse behavior [facility] 2020-04-14 00:00:00 Vertigo [facility] 2020-04-14 00:00:00 Alcohol use [facility] 2020-04-14 00:00:00 Tobacco smoking status [facility] 2020-04-14 00:00:00 Former smoker [facility] Allergies date description facility AMOXICILLIN-POT CLAVULANATE [facility] SEASONAL [facility] NSAIDS (NON-STEROIDAL ANTI-INFLAMMATORY DRUG) [facility] SIMVASTATIN [facility] BRAZIL NUT [facility] NO ALLERGY INFORMATION AVAILABLE [facility] NO KNOWN ALLERGIES [facility] Sulfa (Sulfonamide Antibiotics) [facility] cephalexin [facility] ASPIRIN [facility] BETA ADRENERGIC BLOCKERS [facility] PENICILLINS [facility] PENICILLINS [facility] FLUOROURACIL [facility] Sulfa (Sulfonamide Antibiotics) [facility] cephalexin [facility] Medications date description facility 2020-02-08 00:00:00 null [facility] 2020-02-08 00:00:00 null [facility] 2020-02-08 00:00:00 null [facility] 2020-02-08 00:00:00 null [facility] 2020-02-08 00:00:00 CETIRIZINE HCL [facility] 2020-02-08 00:00:00 ALBUTEROL SULFATE [facility] 2020-02-08 00:00:00 CETIRIZINE HCL [facility] 2020-02-08 00:00:00 ALBUTEROL SULFATE [facility] 2020-03-15 00:00:00 null [facility] 2020-03-15 00:00:00 null [facility] 2020-03-15 00:00:00 NITROFURANTOIN MONOHYD [facility]CRO [facility] 2020-03-15 00:00:00 NITROFURANTOIN MONOHYD MACRO [facility] 2020-03-23 00:00:00 null [facility] 2020-03-23 00:00:00 null [facility] 2020-03-23 00:00:00 null [facility] 2020-03-23 00:00:00 null [facility] 2020-03-23 00:00:00 MONTELUKAST SODIUM [facility] 2020-03-23 00:00:00 ESTRADIOL [facility] 2020-03-23 00:00:00 MONTELUKAST SODIUM [facility] 2020-03-23 00:00:00 ESTRADIOL [facility] 2020-04-14 00:00:00 null [facility] 2020-04-14 00:00:00 null [facility] 2020-04-14 00:00:00 ATENOLOL [facility] 2020-04-14 00:00:00 ATENOLOL [facility] Procedures date description facility 2020-03-15 00:00:00 POC URINALYSIS DIP [facility] date description facility 2020-03-15 00:00:00 [facility] date description facility 2020-04-14 00:00:00 POC URINALYSIS DIP [facility] date description facility 2020-04-14 00:00:00 [facility] Results Social History date description facility 2020-02-08 00:00:00 Former smoker [facility] date description facility 2020-03-15 00:00:00 Former smoker [facility] date description facility 2020-03-23 00:00:00 Former smoker [facility] date description facility 2020-04-14 00:00:00 Former smoker [facility] Social History date description facility 2020-02-08 00:00:00 Former smoker [facility] date description facility 2020-03-15 00:00:00 Former smoker [facility] date description facility 2020-03-23 00:00:00 Former smoker [facility] date description facility 2020-04-14 00:00:00 Former smoker [facility] date description facility [id number]
== END 2020-04-14 17:36 | disposition home or self-care (01) ==
LOC: ED 14:20
DX: R51.9 Headache, unspecified (principal); H66.002 Acute suppurative otitis media without spontaneous rupture of ear drum, left ear; I10 Essential (primary) hypertension
CPT/HCPCS: 70450; 70544; 70551; 80053; 83690; 85025; 93005; 96374; 99284; A9270; J2060

== ENCOUNTER 2020-05-01 09:41 | Outpatient (CLI) | payer MEDICARE ==
[2020-05-01 16:03] LABS: CHOL/HDL RATIO 3.5 (<4.4); CHOLESTEROL 236 mg/dL; HDL CHOLESTEROL 68 mg/dL; LDL CHOLESTEROL,CALCULATED 135 mg/dL; VLDL CHOLESTEROL 33 mg/dL
== END 2020-05-01 09:42 | disposition home or self-care (01) ==
LOC: LAB.S 09:41
PROVIDERS: ATTEND Physician Assistant
DX: R03.0 Elevated blood-pressure reading, without diagnosis of hypertension (principal); R11.0 Nausea; E66.9 Obesity, unspecified; Z51.81 Encounter for therapeutic drug level monitoring; Z79.890 Hormone replacement therapy; M18.11 Unilateral primary osteoarthritis of first carpometacarpal joint, right hand
CPT/HCPCS: 36415; 80061; 82306; 83721

== ENCOUNTER 2021-01-22 09:49 | Outpatient (CLI) | payer MEDICARE ==
--- NOTE | 2021-01-22 10:36 | DEXA Report ---
PROCEDURE: DEXA Spine and/or Hip INDICATIONS: POST MENOPAUSAL TECHNIQUE: Dual energy x-ray absorptiometry (DXA) was performed on a [employer]. Regions measur ed are the AP Spine, femoral neck, and if needed forearm. COMPARISON: April 17, 2018. FINDINGS: Lumbar Spine: Bone Mineral Density 1.42 g/cm/cm,T score 2, normal Left Femoral Neck: Bone Mineral Density 0.999 g/cm/cm, T score -0.1, normal (T score greater or equal to -1.0: NORMAL) (T score from -1.1 to -2.4: OSTEOPENIA) (T score less than or equal to -2.5 to: OSTEOPOROSIS) Impression: No evidence of osteoporosis. Patients with diagnosis of osteoporosis or osteopenia should have regular bone mineral density assess ment. For those eligible for Medicare, routine testing is allowed once every 2 years. Testing frequ ency can be increased for patients who have rapidly progressing disease or for those who are receivin g medical therapy to restore bone mass. Reviewed by: Zhang Patel MD on 01/22/2021 10:34 AM PDT Approved by: Zhang Patel MD on 01/22/2021 10:34 AM PDT Station ID: [id number]
== END 2021-01-22 09:50 | disposition home or self-care (01) ==
LOC: DI 09:49
PROVIDERS: ATTEND Registered Nurse
DX: Z78.0 Asymptomatic menopausal state (principal); R92.8 Other abnormal and inconclusive findings on diagnostic imaging of breast

== ENCOUNTER 2021-01-22 09:50 | Outpatient (CLI) | payer MEDICARE ==
--- NOTE | 2021-01-23 10:22 | Mammography Report ---
BILATERAL DIGITAL DIAGNOSTIC MAMMOGRAM 3D/2D: 01/22/2021 CLINICAL: Patient returns for a 6 month follow up of the right breast, due for bilateral exam. Comparison is made to exams dated: 03/27/2020 ultrasound, 03/27/2020 mammogram, 12/15/2019 mammogram, 02/27/2016 mammogram, and 05/30/2014 mammogram - [facility]. There are scattered fi broglandular elements in both breasts. There is a mass in the right breast seen on the craniocaudal view only. There also is an oval asymmetry in the right breast anterior depth central to the nipple seen on the craniocaudal view only. This was not seen on the prior ultrasound. This is stable compared to prior mammogram. No other significant masses, calcifications, or other findings are seen in either breast. IMPRESSION: INCOMPLETE: NEEDS ADDITIONAL IMAGING EVALUATION Stable asymmetry in the right breast anterior depth central to the nipple seen on the craniocaudal vi ew only is indeterminate. A second look with targeted ultrasound is recommended and will immediately follow. This exam was interpreted at Station ID: [id number]. NOTE: For mammograms, a report in lay terms will be sent to the patient. Approximately 15% of breast malignancies will not be visualized mammographically. In the management of a palpable breast mass, a negative mammogram must not discourage biopsy of a clinically suspicious lesion. Electronically Signed By: Kenrick Estrada M.D. slc/:01/22/2021 11:33:58 ACR BI-RADS Category 0: Incomplete 3340F PARENCHYMAL PATTERN: (A) - The breast(s) demonstrate(s) scattered fibroglandular densities. BI-RADS CATEGORY: (0) - 0 Ultrasound [id number] Immediate follow-up LATERALITY: (B)
--- NOTE | 2021-01-23 10:23 | Ultrasound Report ---
LIMITED ULTRASOUND OF RIGHT BREAST: 01/22/2021 CLINICAL: Patient returns today to evaluate a focal asymmetry in the right breast. Comparison is made to exams dated: 01/22/2021 mammogram, 03/27/2020 ultrasound, 03/27/2020 mammogram , 12/15/2019 mammogram, 02/27/2016 mammogram, and 06/14/2014 mammogram - [facility]. Color flow and real-time ultrasound of the right breast 9 o'clock, and retroareolar regions were perf ormed. Cortés scale images of the real-time examination were reviewed. There is a 0.3 cm dilated duct in the right breast at 9 o'clock anterior depth. This may correlates with mammography findings. Color flow imaging demonstrates that there is no vascularity present. IMPRESSION: PROBABLY BENIGN A minimally dilated duct in the right breast 9:00 may correspond with the mammographic asymmetry. A follow-up mammogram and possible ultrasound in 12 months is recommended to demonstrate long-term st ability. Exam findings were conveyed to the patient. This exam was interpreted at Station ID: [id number]. Electronically Signed By: Kenrick Estrada M.D. slc/:01/22/2021 11:50:58 Ultrasound BI-RADS: 3 Probably benign BI-RADS CATEGORY: (3) - 3 Mammo and US [id number] 12 month follow-up LATERALITY: (B)
== END 2021-01-22 09:51 | disposition home or self-care (01) ==
LOC: DI 09:50
PROVIDERS: ATTEND Registered Nurse
DX: R92.8 Other abnormal and inconclusive findings on diagnostic imaging of breast (principal)

== ENCOUNTER 2021-12-14 13:48 | Outpatient (CLI) | payer MEDICARE | END 2021-12-14 13:49 | disposition home or self-care (01) | LOC: LAB.S 13:48 | PROVIDERS: ATTEND Urology | DX: R30.0 Dysuria (principal) | CPT/HCPCS: 87086; 87181 ==

== ENCOUNTER 2022-04-02 13:54 | Outpatient (CLI) | payer MEDICARE ==
[2022-04-02 21:00] LABS: BASOPHILS # (AUTO) 0.1 10^3/uL (0.0-0.1); BASOPHILS % (AUTO) 0.7 %; EOSINOPHILS # (AUTO) 0.1 10^3/uL (0.0-0.7); EOSINOPHILS % (AUTO) 0.9 %; HCT - HEMATOCRIT 42.6 % (37.0-47.0); LYMPHOCYTES # (AUTO) 1.9 10^3/uL (1.5-3.5); LYMPHOCYTES % (AUTO) 27.1 %; MEAN CORPUSCULAR HEMOGLOBIN 30.6 pg (27.0-31.0); MEAN CORPUSCULAR HGB CONC 32.9 g/dL (32.0-36.0); MEAN CORPUSCULAR VOLUME 93.2 fL (81.0-99.0); MONOCYTES # (AUTO) 0.5 10^3/uL (0.0-1.0); MONOCYTES % (AUTO) 6.5 %; NEUTROPHILS # (AUTO) 4.5 10^3/uL (1.5-6.6); NEUTROPHILS % (AUTO) 64.5 %; PLT - PLATELET COUNT 294 10^3/uL (130-450); RED BLOOD COUNT 4.57 10^6/uL (4.20-5.40); RED CELL DISTRIBUTION WIDTH 13.1 % (12.0-15.0)
[2022-04-02 21:34] LABS: T4 (THYROXINE) 7.6 ug/dL (6.09-12.23)
[2022-04-02 21:38] LABS: THYROID STIMULATING HORMONE 2.32 uIU/mL (0.34-5.60)
[2022-04-02 21:45] LABS: % IRON SATURATION 21 % (20-50); IRON 88 ug/dL (28-170); TOTAL IRON BINDING CAPACITY 412 ug/dL (250-450); TRANSFERRIN 294 mg/dL (192-382)
== END 2022-04-02 13:55 | disposition home or self-care (01) ==
LOC: LAB.S 13:54
PROVIDERS: ATTEND Registered Nurse
DX: L65.9 Nonscarring hair loss, unspecified (principal); Z79.899 Other long term (current) drug therapy
CPT/HCPCS: 36415; 82306; 82626; 83540; 84403; 84436; 84443; 84466; 84480; 85025

== ENCOUNTER 2023-03-07 11:17 | Outpatient (CLI) | payer MEDICARE ==
--- NOTE | 2023-03-10 10:59 | Mammography Report ---
BILATERAL DIGITAL SCREENING MAMMOGRAM 3D/2D: 03/07/2023 CLINICAL: Routine screening. Comparison is made to exams dated: 01/09/2022 mammogram, 01/22/2021 mammogram, 03/27/2020 mammogram, 12/15/2019 mammogram, 02/27/2016 mammogram, and 06/14/2014 mammogram - [facility]. Both breasts are almost entirely fatty (category a/<25% glandular tissue). There are benign post operative findings in the right breast. No significant masses, calcifications, or other findings are seen in either breast. There has been no significant interval change. IMPRESSION: BENIGN There is no mammographic evidence of malignancy. A 1 year screening mammogram is recommended. Based on the Tyrer Cuzick model (a risk assessment model) the patients lifetime risk is 2.4% and her 10 year risk is 0.0%. According to the ACR, ACS, and NCCN guidelines, an annual breast MRI exam terry g with mammogram is recommended if the patients lifetime risk is 20% or greater. This exam was interpreted at Station ID: [id number]. NOTE: For mammograms, a report in lay terms will be sent to the patient. Approximately 15% of breast malignancies will not be visualized mammographically. In the management of a palpable breast mass, a negative mammogram must not discourage biopsy of a clinically suspicious lesion. Electronically Signed By: Lynn beard/capo:03/07/2023 16:32:12 letter sent: No_Letter ACR BI-RADS Category 2: Benign Finding(s) 3342F PARENCHYMAL PATTERN: (F) - The breast(s) demonstrate(s) diffuse fatty replacement. BI-RADS CATEGORY: (2) - 2 Mammogram [id number] 1 year screening LATERALITY: (B)
== END 2023-03-07 11:18 | disposition home or self-care (01) ==
LOC: DI 11:17
PROVIDERS: ATTEND Registered Nurse
DX: Z12.31 Encounter for screening mammogram for malignant neoplasm of breast (principal)